=== PATIENT | male | born 1975 | race Caucasian/White ===

== ENCOUNTER → 2024-01-02 12:48 | Outpatient (REF) | payer OTHER, SELFPAY | LOC: MRI 3T 12:48 | PROVIDERS: ATTENDING PHYSICIAN Psychiatry & Neurology Neurology; FAMILY PHYSICIAN Family Medicine | DX: S06.0X1A Concussion with loss of consciousness of 30 minutes or less, initial encounter (principal) | CPT/HCPCS: 70551; 72141 ==

== ENCOUNTER 2024-02-24 05:31 | Emergency (ER) | payer OTHER, SELFPAY ==
[2024-02-24 05:33] VITALS: BP 164/101
[2024-02-24 06:01] VITALS: BP 132/90
--- NOTE | 2024-02-24 06:09 | ED.GENMED ---
History of Present Illness
General
Chief Complaint: Dental Problem
Source: patient
Exam Limitations: none
Time Seen by Provider: 02/24/24 06:01
History of Present Illness
History of Present Illness:
Patient with ongoing significant issues with his teeth. Cannot afford a dentist. Complaining of pain left lower mandible since last evening. Worse with biting. No chest pain shortness of breath diaphoresis nausea or arm pain. No exertional
component.
Past History
Past History
ED Past Medical History: Hypercholesterolemia and Other (left hand injury)
Social History
Tobacco: Smoker
Alcohol: Former
Drug: None
Personal: Other (engaged)
Employment: Employed
Family History
Family History: Negative Diabetes, Hypertension or CAD
Phy Exam
Physical Exam
Physical Exam:
GENERAL: Alert and oriented in no apparent distress
EYE: Orbits normal.
NECK: Supple, no significant adenopathy.
ENT: Pharynx without erythema. Severe poor dentition diffusely along the lower mandible. All his teeth have significant caries and erosion. No obvious abscess. No mandible swelling. No trismus. No drooling or stridor.
CARDIAC: Regular rate and rhythm
LUNGS: Clear breath sounds,normal
NEUROLOGICAL: Alert and oriented , grossly non-focal
SKIN: Warm and dry
PSYCH: Normal and appropriate interaction.
Course
Orders/Labs/Results
Orders:
Orders
02/24/24 06:08
EKG [Electrocardiogram (*1)] Urgent
Reason for Study: Other
Other Reason for Exam: Left jaw pain
EKG- Treatment ONCE
02/24/24 06:37
Amoxicillin [Amoxil] 500 mg PO NOW STA
02/24/24 07:04
Ketorolac [Toradol] 60 mg IM NOW STA
Vital Signs
Initial and Last Documented VS:
Initial Vital Signs
Temp Pulse Resp BP Pulse Ox
97.8 F 79 20 164/101 97
02/24/24 05:33 02/24/24 05:33 02/24/24 05:33 02/24/24 05:33 02/24/24 05:33
Last Documented Vital Signs
Temp Pulse Resp BP Pulse Ox
97.8 F 78 20 132/90 98
02/24/24 05:33 02/24/24 07:28 02/24/24 05:33 02/24/24 06:01 02/24/24 07:28
MDM/Problems Addressed
Differential Diagnosis Includes:
Patient's symptoms are clinically secondary to severe caries. No obvious abscess. Pain management antibiotics as a stopgap until he can get to see oral surgery. Discussed various clinics he could try. No airway issues at this time. EKG done for
completeness. Highly doubt cardiac issue
*Pulse Oximetry
Patient hypoxic: no
*EKG
Interpreted by ED Provider?: Yes
Interpretation: normal
Comparison EKG: no comparison EKG present
Heart Rate: 82
Rate: normal
Rhythm: sinus
Bledsoe: normal axis
Interval: normal interval
QRS Pattern: right bundle branch block (inc) and left vent hypertrophy (Minimal criteria)
Ischemia: no ischemia
*Critical Care Note
Total Time (30-74mins, 75-104mins- exclusive of procedures): Not Applicable
Update Note
Update Note:
Symptoms clearly are dental related. EKG is normal. Do not feel this is cardiac. Antibiotics pain management and dental follow-up
ED Attending Note
-
Portions of this chart may have been created with voice recognition software.� Occasional wrong word or��sound alike� substitutions may have occurred due to the inherent limitations of voice recognition software.
Discharge Plan
Departure
Patient Disposition: Home (Routine Discharge)
Date of Disposition: 02/24/24
Time of Disposition: 06:37
Patient with high blood pressure during this ER visit?: Yes
Discharge Problem:
Multiple severe dental caries
Instructions: Tooth Decay, Adult (DC), Dental Pain (DC), BLOOD PRESSURE
Prescriptions:
New
amoxicillin 500 mg capsule
500 mg PO TID 10 Days Qty: 30 0RF
No Action
No Current Medications
Activity Restrictions/Additional Instructions:
You need to contact a dentist or dental clinic [facility]. As we discussed, you could try [facility]. Maybe [facility] or [facility].
Advil or Motrin for pain. You can add Tylenol on top of this for pain
Antibiotics as directed
Interventions
Interventions:
*Risk Screen - Suicide Last Done: 02/24/24 05:33
*General Assessment Last Done: 02/24/24 05:33
*Neglect/Abuse Screening Last Done: 02/24/24 05:33
ED- Fall Risk Assessment Last Done: 02/24/24 05:33
*ED COVID-19 Vaccine History Last Done: 02/24/24 05:33
*Nursing Disposition Last Done: 02/24/24 07:28
Discharge Date and Time
Discharge Date/Time: 02/24/24 07:31
Print Language: [email or web address]
[2024-02-24] MEDS: TORADOL 60 MG IM (07:08)
[2024-02-24] MEDS: AMOXIL 500 MG PO (07:10)
== END 2024-02-24 07:31 | disposition home or self-care (01) ==
LOC: EMR 05:31
PROVIDERS: EMERGENCY PHYSICIAN Emergency Medicine
DX: K02.9 Dental caries, unspecified (principal); E78.00 Pure hypercholesterolemia, unspecified; F17.200 Nicotine dependence, unspecified, uncomplicated
CPT/HCPCS: 96372; 99284; 93005

== ENCOUNTER 2024-11-03 13:01 | Outpatient (RCR) | payer OTHER, SELFPAY | END 2024-11-03 23:59 | disposition home or self-care (01) | LOC: RPT 13:01 | PROVIDERS: ATTENDING PHYSICIAN Physician Assistant | DX: M54.81 Occipital neuralgia (principal); Z73.6 Limitation of activities due to disability; R42 Dizziness and giddiness; R29.3 Abnormal posture; X58.XXXD Exposure to other specified factors, subsequent encounter; Z87.820 Personal history of traumatic brain injury | CPT/HCPCS: 97010; 97110; 97112; 97140; 97162; 97163 ==

== ENCOUNTER 2024-12-08 09:17 | Outpatient (RCR) | payer OTHER, SELFPAY | END 2024-12-15 23:59 | disposition home or self-care (01) | LOC: RPT 09:17 | PROVIDERS: ATTENDING PHYSICIAN Physician Assistant | DX: M54.81 Occipital neuralgia (principal); Z73.6 Limitation of activities due to disability; R42 Dizziness and giddiness; R29.3 Abnormal posture; X58.XXXD Exposure to other specified factors, subsequent encounter; Z87.820 Personal history of traumatic brain injury | CPT/HCPCS: 97110; 97112; 97140 ==

== ENCOUNTER 2025-01-05 09:18 | Outpatient (RCR) | payer OTHER, SELFPAY | END 2025-01-12 23:59 | disposition home or self-care (01) | LOC: RPT 09:18 | PROVIDERS: ATTENDING PHYSICIAN Physician Assistant | DX: M54.81 Occipital neuralgia (principal); Z73.6 Limitation of activities due to disability; R42 Dizziness and giddiness; R29.3 Abnormal posture; X58.XXXD Exposure to other specified factors, subsequent encounter; Z87.820 Personal history of traumatic brain injury | CPT/HCPCS: 97110; 97112; 97140 ==

== ENCOUNTER 2025-02-02 09:20 | Outpatient (RCR) | payer OTHER, SELFPAY | END 2025-02-02 23:59 | disposition home or self-care (01) | LOC: RPT 09:20 | PROVIDERS: ATTENDING PHYSICIAN Physician Assistant | DX: M54.81 Occipital neuralgia (principal); Z73.6 Limitation of activities due to disability; R42 Dizziness and giddiness; R29.3 Abnormal posture; X58.XXXD Exposure to other specified factors, subsequent encounter; Z87.820 Personal history of traumatic brain injury | CPT/HCPCS: 97010; 97110; 97112; 97140 ==